=== PATIENT | male | born 1995 | race Caucasian/White ===

== ENCOUNTER 2021-12-22 18:27 | Emergency (ER) | payer OTHER, SELFPAY ==
[2021-12-22 18:29] VITALS: BP 118/79; PULSE 83; RESP 18; TEMP 36.4; O2SAT 100
--- NOTE | 2021-12-22 19:23 | ED_ITS ---
HPI - Wound/Laceration General Chief Complaint: Wound/Laceration Stated Complaint: Left thumb laceration Time Seen by Provider: 12/22/21 19:22 Source: patient Mode of arrival: Ambulatory History of Present Illness HPI narrative: 18-year-old male nonsmoker with noncontributory medical history presents with family in the chief complaint of an accidental laceration on the volar surface of his left thumb. He states that he had broken glass in his kitchen and then accidentally knocked off the counter and reached for, forgetting that it was broken and then lacerated his thumb. He states it bled a bit initially but has since stopped. He has full strength, range of motion and sensation and denies any other injury or laceration. His tetanus is up-to-date. He is otherwise well and free of complaint Related Data Allergies Allergy/AdvReac Type Severity Reaction Status Date / Time No Known Drug Allergies Allergy Verified 12/22/21 18:33 Review of Systems Review of Systems Narrative: GENERAL: Denies chills, fatigue, malaise, fever, sweats. HEENT: Denies sinus pain, ear pain, sore throat, difficulty swallowing, dizziness. RESPIRATORY: Denies dyspnea, cough, wheezing, hemoptysis, sputum. CARDIOVASCULAR: Denies chest pain, palpitations, orthopnea, edema, GASTROINTESTINAL: Denies nausea, vomiting, abdominal pain, diarrhea, constipation, melena. : Denies dysuria, frequency, incontinence, hematuria, urinary retention. MUSCULOSKELETAL: See HPI SKIN: See HPI NEUROLOGIC: See HPI PSYCHIATRIC: No concerning psychosocial issues. 12 point review of systems is negative except for those stated above Exam Narrative Exam Narrative: GEN: AOx3 and in mild distress EYES: Pupils are equal, round, and reactive to light and accommodation. Extraoccular muscles are intact bilaterally. There is no subconjunctival hemorrhage or exudate. CHEST: Lungs are clear to auscultation bilaterally and free of wheezes, rales, or rhonchi. Heart rate is regular rhythm, there are no murmurs, clicks, rubs, or gallops. There is no chest wall tenderness. ABD: Abdomen is soft and nontender. There is no guarding or rebound. Bowel sounds are normal in all 4 quadrants. There is no mass or organomegaly. EXT: Full and essentially painless range of motion of left thumb, 0.5 cm laceration on volar surface, viewed in a bloodless field and no evidence of tendon injury noted, no foreign body and no active bleeding.. SKIN: Warm, pink, and dry. No erythema or rash Initial Vital Signs Initial Vital Signs: Vital Signs Temperature 97.6 F 12/22/21 18:29 Pulse Rate 83 12/22/21 18:29 Respiratory Rate 18 12/22/21 18:29 Blood Pressure 118/79 12/22/21 18:29 Pulse Oximetry 100 12/22/21 18:29 Oxygen Delivery Method 12/22/21 18:29 Procedures Laceration Repair Laceration 1: Site: upper extremity and hand Side (If applicable): left Size (cm): 0.5 Description: linear Depth: simple, single layer Local Anesthetic: lidocaine 2% Amount of anesthesia used (mL): 3 Pre-repair: wound explored and cleansed with chlorhexadine Skin layer closed with: nylon Skin layer suture size: 4-0 Number of sutures: 3 Technique: simple, interrupted Course Orders Ordered: Discontinued Medications Bacitracin (Bacitracin Oint 0.9 Gm Pckt) 1 applic TOP NOW ONE Stop: 12/22/21 19:43 Last Admin: 12/22/21 19:47 Dose: 1 applic Documented By: CATHY Vital Signs Vital signs: Vital Signs - 8 hr 12/22/21 18:29 Temperature 97.6 F Pulse Rate 83 Respiratory Rate 18 Blood Pressure 118/79 Pulse Oximetry 100 Oxygen Delivery Method Room Air Discharge Plan Departure Patient Disposition: Home Clinical Impression: Laceration Instructions: DI for Laceration Repair Activity Restrictions/Additional Instructions: *You have been diagnosed with [left thumb laceration] *What to do: *Please continue to take your regular medications as directed. [ ] New medication prescriptions sent to your pharmacy: [ ] [ ] New medication written as a paper prescription [x ] No new medications given * Please keep the wound clean and dry to the best of your ability. Please monitor for signs of infection such as redness to the skin or increasing pain. Have the sutures/zane removed by your doctor in about 7 days. If you are unable to get into your doctor, we would be happy to remove the sutures/zane in that same timeframe. *If you do not have a primary care provider please contact the [facility] Resource line at [phone]. They will ask some questions about your medical history and help get you set up with a doctor in the community. *Return to Emergency Department if you should have any new, worsening or concerning symptoms, such as [fever greater than 101 F, shaking chills, worsening pain, persistent vomiting or other bothersome symptoms] Referrals: Miscellaneous,Doctor, MD [Primary Care Provider] - Visit Report Forms: Patient Portal/API
[2021-12-22] MEDS: BACITRACIN OINT 0.9 GM PCKT 1 APPLIC TOP (19:47)
--- NOTE | 2021-12-22 19:48 | PC.NURSE ---
Pt discharged before seen by RN. Defer to provider assessment.
== END 2021-12-22 19:50 | disposition home or self-care (01) ==
PROVIDERS: Emergency Provider Emergency Medicine
DX: S61.012A Laceration without foreign body of left thumb without damage to nail, initial encounter (principal); W25.XXXA Contact with sharp glass, initial encounter
CPT/HCPCS: 12001; 99282

== ENCOUNTER 2022-03-08 13:02 | Emergency (ER) | payer OTHER, SELFPAY ==
[2022-03-08 13:33] VITALS: BP 148/82; PULSE 96; RESP 18; TEMP 36.7; O2SAT 100; BMI 25.7
--- NOTE | 2022-03-08 16:58 | PC.NURSE ---
Per admitting staff, patient decided to leave.
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
== END 2022-03-08 15:30 | disposition left against medical advice (07) ==
PROVIDERS: Emergency Provider Emergency Medicine
CPT/HCPCS: 99281

== ENCOUNTER 2022-03-27 08:39 | Emergency (ER) | payer OTHER, SELFPAY ==
[2022-03-27 08:50] VITALS: BP 123/77; PULSE 91; RESP 16; TEMP 36.9; O2SAT 100; BMI 22.4
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
[2022-03-27 09:58] VITALS: BP 114/78; PULSE 82; RESP 21; TEMP 36.8; O2SAT 98
== END 2022-03-27 09:59 | disposition home or self-care (01) ==
PROVIDERS: Emergency Provider Emergency Medicine
DX: R07.81 Pleurodynia (principal); V89.2XXA Person injured in unspecified motor-vehicle accident, traffic, initial encounter
CPT/HCPCS: 71101; 99283

== ENCOUNTER 2022-08-14 01:48 | Emergency (ER) | payer OTHER, SELFPAY ==
[2022-08-14 02:03] VITALS: BP 123/80; PULSE 72; RESP 16; TEMP 35.9; O2SAT 98; BMI 28.5
[2022-08-14 02:09] VITALS: BP 134/83; PULSE 72; RESP 16; O2SAT 95
--- NOTE | 2022-08-14 02:25 | ED_ITS ---
HPI - Headache General Chief Complaint: Headache Stated Complaint: headache x3 days Time Seen by Provider: 08/14/22 02:23 Mode of arrival: Ambulatory History of Present Illness HPI Narrative: Patient 27-year-old healthy male who presents today with right-sided headache. He reports that he does have a history of headaches he gets about 1 week usually ibuprofen gets better. However this headache has been off and on for the last 3 days. Today it is the worse is ever been goes up behind his eye and and over his head. He took ibuprofen is not helping. He feels slightly nauseous he is not vomiting. He denies any fever chills numbness tingling or weakness. No neck pain. Related Data Allergies Allergy/AdvReac Type Severity Reaction Status Date / Time No Known Drug Allergies Allergy Verified 12/22/21 18:33 Review of Systems Review of Systems ROS Unobtainable: All systems reviewed & are unremarkable except as noted in HPI and below Patient History Social History Smoking Status: Never smoker Smoking Status: Never smoker Substance Use Type: does not use Exam Initial Vital Signs Initial Vital Signs: Vital Signs Temperature 96.7 F L 08/14/22 02:03 Pulse Rate 72 08/14/22 02:03 Respiratory Rate 16 08/14/22 02:03 Blood Pressure 123/80 08/14/22 02:03 Pulse Oximetry 98 08/14/22 02:03 Oxygen Delivery Method Room Air 08/14/22 02:03 GENERAL: Alert 27-year-old male appears uncomfortable HEENT: Head atraumatic,EOMI, pupils reactive, face symmetric, neck is supple no meningeal signs CARDIOVASCULAR: Regular rate and rhythm without murmurs, rubs or gallops. RESPIRATORY: Breath sounds equal bilaterally, no wheezes rales or rhonchi. EXTREMITIES: Normal range of motion, no clubbing or edema. Neurovascularly intact NEUROLOGICAL: Alert and oriented x4.Normal gait and speech. 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 Course Orders Ordered: Discontinued Medications Dexamethasone (Dexamethasone 10 Mg/Ml Vial) 10 mg IV NOW ONE Stop: 08/14/22 02:29 Last Admin: 08/14/22 02:34 Dose: 10 mg Documented By: YO Sodium Chloride (Normal Saline 0.9%) 1,000 mls @ 1,000 mls/hr IV BOLUS ONE Stop: 08/14/22 03:27 Last Infusion: 08/14/22 03:45 Dose: 0 mls/hr Documented By: Admin: 08/14/22 02:34 Dose: 1,000 mls/hr Documented By: YO Ketorolac Tromethamine (Ketorolac 30 Mg/Ml Vial) 15 mg IV NOW ONE Stop: 08/14/22 02:29 Last Admin: 08/14/22 02:34 Dose: 15 mg Documented By: YO Prochlorperazine (Prochlorperazine 10 Mg/2 Ml Vial) 10 mg IV NOW ONE Stop: 08/14/22 02:29 Last Admin: 08/14/22 02:34 Dose: 10 mg Documented By: YO Vital Signs Vital signs: Vital Signs - 8 hr 08/14/22 02:03 08/14/22 02:09 Temperature 96.7 F L Pulse Rate 72 72 Respiratory Rate 16 16 Blood Pressure 123/80 134/83 Pulse Oximetry 98 95 Oxygen Delivery Method Room Air MDM - Headache MDM Narrative Medical decision making narrative: Patient is a 27-year-old male with history of headaches presenting today worseni ng headache behind his right eye and over his head. No focal deficits. He is given a migraine like cocktail he does have to drive home so Benadl was admitted. Symptoms completely resolved. He is up and ambulatory to the restroom. At this time I do not think he needs head CT unlikely intracranial hemorrhage or mass. He is afebrile without meningeal signs. No need for blood work. Discharge Plan Departure Patient Disposition: Home Clinical Impression: Headache Instructions: DI for Headache Activity Restrictions/Additional Instructions: *You have been diagnosed with headache *What to do: At this time go home and rest I hope that you continue to feel better stay hydrated *Continue to take medications as directed *Follow up with your primary care provider in 2-3 days or call [phone] *Return to ER if you should have worsening headache persistent vomiting numbness tingling weakness or any new, worsening or concerning symptoms Referrals: Jesús Colbert [Primary Care Provider] - Stand Alone Forms: Patient Portal/API
[2022-08-14] MEDS: PROCHLORPERAZINE 10 MG/2 ML VIAL IV (02:34)
[2022-08-14] MEDS: KETOROLAC 30 MG/ML VIAL 15 MG IV (02:34)
[2022-08-14] MEDS: DEXAMETHASONE 10 MG/ML VIAL IV (02:34)
[2022-08-14] MEDS: SODIUM CHLORIDE 0.9% 1,000 ML 1000 ML IV (02:34)
== END 2022-08-14 03:52 | disposition home or self-care (01) ==
PROVIDERS: Emergency Provider Emergency Medicine
DX: R51.9 Headache, unspecified (principal)
CPT/HCPCS: 96374; 96375; 99283; J0780; J1100; J1885

== ENCOUNTER 2024-02-21 13:33 | Emergency (ER) | payer OTHER, SELFPAY ==
[2024-02-21 13:36] VITALS: BP 129/88; PULSE 80; RESP 16; TEMP 36.5; O2SAT 99; BMI 23.0
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
== END 2024-02-21 15:26 | disposition home or self-care (01) ==
PROVIDERS: Emergency Provider Physician Assistant
DX: S62.336A Displaced fracture of neck of fifth metacarpal bone, right hand, initial encounter for closed fracture (principal); W22.8XXA Striking against or struck by other objects, initial encounter
CPT/HCPCS: 29125; 73130; 99283